=== PATIENT | male | born 1960 | race Native Hawaiian/Other Pacific Islander ===

== ENCOUNTER 2017-08-07 17:16 | Outpatient (CLI) | payer MEDICAID ==
[2017-08-07 13:43] LABS: BASOPHILS % (AUTO) 0.3 %; EOSINOPHILS # (AUTO) 0.2 10^3/uL (0.0-0.7); EOSINOPHILS % (AUTO) 2.3 %; HCT - HEMATOCRIT 49.8 % (42.0-52.0); LYMPHOCYTES % (AUTO) 28.8 %; MEAN CORPUSCULAR HEMOGLOBIN 32.3 pg (27.0-31.0); MEAN CORPUSCULAR HGB CONC 34.1 g/dL (32.0-36.0); MEAN CORPUSCULAR VOLUME 94.7 fL (80.0-94.0); MEAN PLATELET VOLUME 7.8 fL (7.4-11.4); MONOCYTES # (AUTO) 0.6 10^3/uL (0.0-1.0); MONOCYTES % (AUTO) 5.8 %; NEUTROPHILS # (AUTO) 6.5 10^3/uL (1.5-6.6); NEUTROPHILS % (AUTO) 62.8 %; NUCLEATED RED BLOOD CELLS AUTO 0.1 /100WBC; RED BLOOD COUNT 5.26 10^6/uL (4.70-6.10); RED CELL DISTRIBUTION WIDTH 16.1 % (12.0-15.0); UNCORRECTED WHITE BLOOD COUNT 10.3 x10^3/uL; WHITE BLOOD COUNT 10.3 x10^3/uL (4.8-10.8)
[2017-08-07 13:45] LABS: ALBUMIN/GLOBULIN RATIO 1.7 (1.0-2.2); BILIRUBIN,TOTAL 1.2 mg/dL (0.2-1.0); BUN - BLOOD UREA NITROGEN 11 mg/dL (6-20); CALCIUM 9.3 mg/dL (8.5-10.3); CARBON DIOXIDE - CO2 28 mmol/L (21-32); CHLORIDE 101 mmol/L (101-111); CHOLESTEROL 181 mg/dL; CREATININE 1.1 mg/dL (0.6-1.2); GFR - MDRD 69 (>89); GLUCOSE 113 mg/dL (70-100); HDL CHOLESTEROL 45 mg/dL; LDL/HDL RATIO 2.6 (<3.6); POTASSIUM 3.2 mmol/L (3.5-5.0); SODIUM 139 mmol/L (135-145); TOTAL PROTEIN 6.7 g/dL (6.7-8.2); TRIGLYCERIDES 104 mg/dL; VLDL CHOLESTEROL 21 mg/dL
== END 2017-08-07 17:17 | disposition home or self-care (01) ==
LOC: LAB.N 17:16
PROVIDERS: ATTEND Family Medicine
DX: Z51.81 Encounter for therapeutic drug level monitoring (principal); I69.959 Hemiplegia and hemiparesis following unspecified cerebrovascular disease affecting unspecified side; D75.1 Secondary polycythemia; R56.9 Unspecified convulsions; I10 Essential (primary) hypertension
CPT/HCPCS: 36415; 80050; 80061

== ENCOUNTER 2018-06-21 08:00 | Outpatient (CLI) | payer MEDICAID ==
[2018-06-21 18:52] LABS: BASOPHILS % (AUTO) 0.4 %; EOSINOPHILS # (AUTO) 0.2 10^3/uL (0.0-0.7); EOSINOPHILS % (AUTO) 2.5 %; HGB - HEMOGLOBIN 16.9 g/dL (14.0-18.0); LYMPHOCYTES # (AUTO) 2.5 10^3/uL (1.5-3.5); LYMPHOCYTES % (AUTO) 27.2 %; MEAN CORPUSCULAR HEMOGLOBIN 33.1 pg (27.0-31.0); MEAN CORPUSCULAR HGB CONC 33.5 g/dL (32.0-36.0); MEAN CORPUSCULAR VOLUME 98.8 fL (80.0-94.0); MEAN PLATELET VOLUME 7.7 fL (7.4-11.4); MONOCYTES # (AUTO) 0.6 10^3/uL (0.0-1.0); MONOCYTES % (AUTO) 6.6 %; NEUTROPHILS # (AUTO) 5.9 10^3/uL (1.5-6.6); NEUTROPHILS % (AUTO) 63.3 %; PLT - PLATELET COUNT 362 10^3/uL (130-450); RED BLOOD COUNT 5.09 10^6/uL (4.70-6.10); RED CELL DISTRIBUTION WIDTH 14.6 % (12.0-15.0); WHITE BLOOD COUNT 9.2 x10^3/uL (4.8-10.8)
[2018-06-21 19:26] LABS: ALBUMIN 4.2 g/dL (3.2-5.5); ALBUMIN/GLOBULIN RATIO 1.8 (1.0-2.2); ALKALINE PHOSPHATASE 66 IU/L (42-121); ALT ALANINE AMINOTRANSFERASE 51 IU/L (10-60); AST ASPARTATE AMINOTRANSFERASE 41 IU/L (10-42); BILIRUBIN,TOTAL 1.2 mg/dL (0.2-1.0); BUN - BLOOD UREA NITROGEN 13 mg/dL (6-20); CALCIUM 9.1 mg/dL (8.5-10.3); CARBON DIOXIDE - CO2 30 mmol/L (21-32); CHLORIDE 95 mmol/L (101-111); CHOL/HDL RATIO 4.4 (<5.0); CHOLESTEROL 182 mg/dL; GFR - MDRD 77 (>89); GLUCOSE 122 mg/dL (70-100); HDL CHOLESTEROL 41 mg/dL; LDL CHOLESTEROL,CALCULATED 95 mg/dL; LDL/HDL RATIO 2.3 (<3.6); SODIUM 136 mmol/L (135-145); TOTAL PROTEIN 6.5 g/dL (6.7-8.2); VLDL CHOLESTEROL 46 mg/dL
== END 2018-06-21 08:01 | disposition home or self-care (01) ==
LOC: LAB.N 08:00
PROVIDERS: ATTEND Family Medicine
DX: D75.1 Secondary polycythemia (principal); G40.909 Epilepsy, unspecified, not intractable, without status epilepticus; E78.5 Hyperlipidemia, unspecified; I10 Essential (primary) hypertension; Z51.81 Encounter for therapeutic drug level monitoring
CPT/HCPCS: 36415; 80050; 80061; 83721

== ENCOUNTER 2018-08-13 11:21 | Outpatient (CLI) | payer MEDICAID ==
[2018-08-13 19:43] LABS: CALCIUM 8.9 mg/dL (8.5-10.3)
[2018-08-14 18:11] LABS: HB2 TOTAL 18.2 g/dL; HEMOGLOBIN A1C 0.97 g/dL
== END 2018-08-13 23:59 | disposition home or self-care (01) ==
LOC: LAB.N 11:21
PROVIDERS: ATTEND Family Medicine
DX: E87.6 Hypokalemia (principal); R73.01 Impaired fasting glucose
CPT/HCPCS: 36415; 80048; 83036

== ENCOUNTER 2018-11-22 08:00 | Outpatient (CLI) | payer MEDICAID ==
[2018-11-22 18:58] LABS: BASOPHILS # (AUTO) 0.1 10^3/uL (0.0-0.1); BASOPHILS % (AUTO) 0.6 %; EOSINOPHILS # (AUTO) 0.1 10^3/uL (0.0-0.7); EOSINOPHILS % (AUTO) 1.2 %; HGB - HEMOGLOBIN 16.1 g/dL (14.0-18.0); LYMPHOCYTES # (AUTO) 2.1 10^3/uL (1.5-3.5); LYMPHOCYTES % (AUTO) 23.2 %; MEAN CORPUSCULAR HEMOGLOBIN 32.5 pg (27.0-31.0); MEAN CORPUSCULAR HGB CONC 33.2 g/dL (32.0-36.0); MEAN CORPUSCULAR VOLUME 97.9 fL (80.0-94.0); MEAN PLATELET VOLUME 7.7 fL (7.4-11.4); MONOCYTES # (AUTO) 0.6 10^3/uL (0.0-1.0); MONOCYTES % (AUTO) 6.2 %; NEUTROPHILS # (AUTO) 6.2 10^3/uL (1.5-6.6); NEUTROPHILS % (AUTO) 68.8 %; PLT - PLATELET COUNT 301 10^3/uL (130-450); RED BLOOD COUNT 4.95 10^6/uL (4.70-6.10); RED CELL DISTRIBUTION WIDTH 15.1 % (12.0-15.0)
[2018-11-22 19:31] LABS: ALBUMIN 4.1 g/dL (3.2-5.5); ALBUMIN/GLOBULIN RATIO 1.8 (1.0-2.2); BILIRUBIN,TOTAL 1.2 mg/dL (0.2-1.0); CALCIUM 8.8 mg/dL (8.5-10.3); CREATININE 0.9 mg/dL (0.6-1.2); TOTAL PROTEIN 6.4 g/dL (6.7-8.2)
== END 2018-11-22 23:59 | disposition home or self-care (01) ==
LOC: LAB.N 08:00
PROVIDERS: ATTEND Family Medicine
DX: E87.1 Hypo-osmolality and hyponatremia (principal); I10 Essential (primary) hypertension; E87.6 Hypokalemia; R73.01 Impaired fasting glucose
CPT/HCPCS: 36415; 80050

== ENCOUNTER 2019-07-22 09:00 | Outpatient (CLI) | payer MEDICAID | END 2019-07-22 23:59 | disposition home or self-care (01) | LOC: LAB.R 09:00 | PROVIDERS: ATTEND Family Medicine | DX: Z13.818 Encounter for screening for other digestive system disorders (principal) | CPT/HCPCS: 82274 ==

== ENCOUNTER 2020-12-14 08:00 | Outpatient (CLI) | payer MEDICAID ==
[2020-12-14 11:50] LABS: BASOPHILS % (AUTO) 0.4 %; EOSINOPHILS # (AUTO) 0.2 10^3/uL (0.0-0.7); EOSINOPHILS % (AUTO) 2.1 %; HCT - HEMATOCRIT 49.8 % (42.0-52.0); HGB - HEMOGLOBIN 16.5 g/dL (14.0-18.0); LYMPHOCYTES # (AUTO) 2.6 10^3/uL (1.5-3.5); LYMPHOCYTES % (AUTO) 33.2 %; MEAN CORPUSCULAR HGB CONC 33.1 g/dL (32.0-36.0); MEAN CORPUSCULAR VOLUME 102.5 fL (80.0-94.0); MEAN PLATELET VOLUME 9.6 fL (7.4-11.4); MONOCYTES # (AUTO) 0.5 10^3/uL (0.0-1.0); MONOCYTES % (AUTO) 6.3 %; NEUTROPHILS # (AUTO) 4.4 10^3/uL (1.5-6.6); NEUTROPHILS % (AUTO) 57.7 %; PLT - PLATELET COUNT 280 10^3/uL (130-450); RED BLOOD COUNT 4.86 10^6/uL (4.70-6.10); RED CELL DISTRIBUTION WIDTH 13.3 % (12.0-15.0); WHITE BLOOD COUNT 7.7 x10^3/uL (4.8-10.8)
[2020-12-14 13:24] LABS: ALBUMIN 4.4 g/dL (3.2-5.5); ALBUMIN/GLOBULIN RATIO 1.8 (1.0-2.2); ALKALINE PHOSPHATASE 73 IU/L (42-121); ALT ALANINE AMINOTRANSFERASE 23 IU/L (10-60); AST ASPARTATE AMINOTRANSFERASE 18 IU/L (10-42); BILIRUBIN,TOTAL 1.3 mg/dL (0.2-1.0); BUN - BLOOD UREA NITROGEN 11 mg/dL (6-20); CALCIUM 9.5 mg/dL (8.5-10.3); CARBON DIOXIDE - CO2 27 mmol/L (21-32); CHLORIDE 101 mmol/L (101-111); CHOLESTEROL 166 mg/dL; CREATININE 0.8 mg/dL (0.6-1.2); ESTIMATED AVERAGE GLUCOSE 131 mg/dL (70-100); GFR - MDRD 99 (>89); GLUCOSE 105 mg/dL (70-100); HDL CHOLESTEROL 41 mg/dL; HEMOGLOBIN A1c% 6.2 % (4.27-6.07); LDL CHOLESTEROL,CALCULATED 101 mg/dL; LDL/HDL RATIO 2.5 (<3.6); SODIUM 138 mmol/L (135-145); TOTAL PROTEIN 6.9 g/dL (6.7-8.2); TRIGLYCERIDES 121 mg/dL; VLDL CHOLESTEROL 24 mg/dL
[2020-12-14 13:25] LABS: THYROID STIMULATING HORMONE 1.76 uIU/mL (0.34-5.60)
[2020-12-14 14:30] LABS: CREATININE,URINE 203.4 mg/dL; MICROALBUM/CREATININE RATIO,UR 3.4 ug/mg (<30.0); MICROALBUMIN,URINE 0.7 mg/dL (0-300.0)
== END 2020-12-14 23:59 | disposition home or self-care (01) ==
LOC: LAB.WCP 08:00
PROVIDERS: ATTEND Internal Medicine
DX: I10 Essential (primary) hypertension (principal); E87.1 Hypo-osmolality and hyponatremia; Z83.3 Family history of diabetes mellitus; Z12.5 Encounter for screening for malignant neoplasm of prostate; J03.80 Acute tonsillitis due to other specified organisms
CPT/HCPCS: 36415; 80050; 80061; 82043; 82533; 82570; 83036; 83721; 83930; 83935; 84153; 84300; 86769

== ENCOUNTER 2021-06-24 08:06 | Outpatient (CLI) | payer MEDICAID ==
[2021-06-24 12:56] LABS: CALCIUM 9.5 mg/dL (8.5-10.3); CREATININE 0.9 mg/dL (0.6-1.2); POTASSIUM 3.9 mmol/L (3.5-5.0)
[2021-06-24 13:14] LABS: ESTIMATED AVERAGE GLUCOSE 143 mg/dL (70-100); HEMOGLOBIN A1c% 6.6 % (4.27-6.07)
== END 2021-06-24 23:59 | disposition home or self-care (01) ==
LOC: LAB.WCP 08:06
PROVIDERS: ATTEND Internal Medicine
DX: I10 Essential (primary) hypertension (principal); R73.03 Prediabetes
CPT/HCPCS: 36415; 80048; 82043; 82570; 83036

== ENCOUNTER 2021-11-01 10:22 | Outpatient (CLI) | payer MEDICAID ==
[2021-11-01 12:07] LABS: BASOPHILS % (AUTO) 0.2 %; EOSINOPHILS # (AUTO) 0.1 10^3/uL (0.0-0.7); EOSINOPHILS % (AUTO) 1.2 %; HCT - HEMATOCRIT 50.4 % (42.0-52.0); LYMPHOCYTES # (AUTO) 2.6 10^3/uL (1.5-3.5); MEAN CORPUSCULAR HEMOGLOBIN 34.5 pg (27.0-31.0); MEAN CORPUSCULAR HGB CONC 33.7 g/dL (32.0-36.0); MEAN CORPUSCULAR VOLUME 102.2 fL (80.0-94.0); MEAN PLATELET VOLUME 9.4 fL (7.4-11.4); MONOCYTES # (AUTO) 0.7 10^3/uL (0.0-1.0); MONOCYTES % (AUTO) 6.1 %; NEUTROPHILS # (AUTO) 7.3 10^3/uL (1.5-6.6); NEUTROPHILS % (AUTO) 68.2 %; PLT - PLATELET COUNT 356 10^3/uL (130-450); RED BLOOD COUNT 4.93 10^6/uL (4.70-6.10); RED CELL DISTRIBUTION WIDTH 15.4 % (12.0-15.0); WHITE BLOOD COUNT 10.6 x10^3/uL (4.8-10.8)
[2021-11-01 12:29] LABS: ALBUMIN 4.5 g/dL (3.2-5.5); ALBUMIN/GLOBULIN RATIO 1.7 (1.0-2.2); ALKALINE PHOSPHATASE 76 IU/L (42-121); ALT ALANINE AMINOTRANSFERASE 29 IU/L (10-60); AST ASPARTATE AMINOTRANSFERASE 22 IU/L (10-42); BILIRUBIN,TOTAL 1.5 mg/dL (0.2-1.0); BUN - BLOOD UREA NITROGEN 17 mg/dL (6-20); CALCIUM 9.4 mg/dL (8.5-10.3); CARBON DIOXIDE - CO2 27 mmol/L (21-32); CHLORIDE 96 mmol/L (101-111); CHOL/HDL RATIO 4.1 (<5.0); CHOLESTEROL 179 mg/dL; GFR - MDRD 76 (>89); GLUCOSE 117 mg/dL (70-100); HDL CHOLESTEROL 44 mg/dL; LDL CHOLESTEROL,CALCULATED 109 mg/dL; LDL/HDL RATIO 2.5 (<3.6); SODIUM 135 mmol/L (135-145); TOTAL PROTEIN 7.1 g/dL (6.7-8.2); TRIGLYCERIDES 130 mg/dL; VLDL CHOLESTEROL 26 mg/dL
[2021-11-01 12:50] LABS: CREATININE,URINE 233.8 mg/dL; MICROALBUM/CREATININE RATIO,UR 3.8 ug/mg (<30.0); MICROALBUMIN,URINE 0.9 mg/dL (0-300.0)
[2021-11-01 12:53] LABS: THYROID STIMULATING HORMONE 1.66 uIU/mL (0.34-5.60)
[2021-11-01 13:18] LABS: ESTIMATED AVERAGE GLUCOSE 137 mg/dL (70-100); HEMOGLOBIN A1c% 6.4 % (4.27-6.07)
== END 2021-11-01 10:23 | disposition home or self-care (01) ==
LOC: LAB.N 10:22
PROVIDERS: ATTEND Internal Medicine
DX: I10 Essential (primary) hypertension (principal); E78.5 Hyperlipidemia, unspecified; Z12.5 Encounter for screening for malignant neoplasm of prostate; R73.03 Prediabetes
CPT/HCPCS: 36415; 80050; 80061; 82043; 82570; 83036; 83721; 84153

== ENCOUNTER 2023-04-16 10:34 | Outpatient (CLI) | payer MEDICAID ==
[2023-04-16 17:55] LABS: BASOPHILS % (AUTO) 0.4 %; EOSINOPHILS # (AUTO) 0.1 10^3/uL (0.0-0.7); EOSINOPHILS % (AUTO) 0.9 %; HCT - HEMATOCRIT 53.4 % (42.0-52.0); HGB - HEMOGLOBIN 17.5 g/dL (14.0-18.0); LYMPHOCYTES % (AUTO) 20.2 %; MEAN CORPUSCULAR HEMOGLOBIN 31.1 pg (27.0-31.0); MEAN CORPUSCULAR HGB CONC 32.8 g/dL (32.0-36.0); MEAN PLATELET VOLUME 9.4 fL (7.4-11.4); MONOCYTES # (AUTO) 0.7 10^3/uL (0.0-1.0); MONOCYTES % (AUTO) 6.5 %; NEUTROPHILS # (AUTO) 7.2 10^3/uL (1.5-6.6); NEUTROPHILS % (AUTO) 71.7 %; PLT - PLATELET COUNT 274 10^3/uL (130-450); RED BLOOD COUNT 5.62 10^6/uL (4.70-6.10); RED CELL DISTRIBUTION WIDTH 14.6 % (12.0-15.0)
[2023-04-16 17:59] LABS: ALBUMIN 4.6 g/dL (3.2-5.5); ALBUMIN/GLOBULIN RATIO 1.8 (1.0-2.2); ALKALINE PHOSPHATASE 82 IU/L (42-121); ALT ALANINE AMINOTRANSFERASE 16 IU/L (10-60); AST ASPARTATE AMINOTRANSFERASE 17 IU/L (10-42); BILIRUBIN,TOTAL 1.4 mg/dL (0.2-1.0); BUN - BLOOD UREA NITROGEN 18 mg/dL (6-20); CALCIUM 9.6 mg/dL (8.5-10.3); CARBON DIOXIDE - CO2 26 mmol/L (21-32); CHLORIDE 103 mmol/L (101-111); CHOL/HDL RATIO 2.8 (<5.0); CHOLESTEROL 112 mg/dL; CREATININE 1.1 mg/dL (0.6-1.3); GFR - MDRD 68 (>89); GLUCOSE 94 mg/dL (74-104); HDL CHOLESTEROL 40 mg/dL; LDL CHOLESTEROL,CALCULATED 52 mg/dL; LDL/HDL RATIO 1.3 (<3.6); POTASSIUM 4.3 mmol/L (3.5-4.5); SODIUM 135 mmol/L (135-145); TOTAL PROTEIN 7.1 g/dL (6.4-8.9); TRIGLYCERIDES 100 mg/dL (48-352); VLDL CHOLESTEROL 20 mg/dL
[2023-04-16 18:17] LABS: THYROID STIMULATING HORMONE 1.79 uIU/mL (0.34-5.60)
[2023-04-16 22:10] LABS: ESTIMATED AVERAGE GLUCOSE 140 mg/dL (70-100); HEMOGLOBIN A1c% 6.5 % (4.27-6.07)
== END 2023-04-16 10:35 | disposition home or self-care (01) ==
LOC: LAB.N 10:34
PROVIDERS: ATTEND Internal Medicine
DX: E78.5 Hyperlipidemia, unspecified (principal); I10 Essential (primary) hypertension; R73.03 Prediabetes; Z12.5 Encounter for screening for malignant neoplasm of prostate; Z13.29 Encounter for screening for other suspected endocrine disorder
CPT/HCPCS: 36415; 80050; 80061; 82043; 82570; 83036; 83721; 84153

== ENCOUNTER 2023-04-21 08:00 | Outpatient (CLI) | payer MEDICAID ==
[2023-04-21 12:39] LABS: MICROALBUM/CREATININE RATIO,UR 45.5 ug/mg (<30.0); MICROALBUMIN,URINE 6.1 mg/dL
== END 2023-04-21 23:59 | disposition home or self-care (01) ==
LOC: LAB.N 08:00
PROVIDERS: ATTEND Internal Medicine
DX: R73.03 Prediabetes (principal)
CPT/HCPCS: 82043; 82570

== ENCOUNTER 2023-10-13 10:32 | Outpatient (CLI) | payer MEDICAID ==
[2023-10-13 12:25] LABS: CALCIUM 9.7 mg/dL (8.5-10.3); POTASSIUM 4.1 mmol/L (3.5-4.5)
[2023-10-13 12:34] LABS: FECAL OCCULT BLOOD (FIT) POSITIVE (NEGATIVE)
[2023-10-13 14:06] LABS: ESTIMATED AVERAGE GLUCOSE 143 mg/dL (70-100); HEMOGLOBIN A1c% 6.6 % (4.27-6.07)
== END 2023-10-13 10:33 | disposition home or self-care (01) ==
LOC: LAB.N 10:32
PROVIDERS: ATTEND Internal Medicine
DX: R73.03 Prediabetes (principal); Z12.11 Encounter for screening for malignant neoplasm of colon
CPT/HCPCS: 36415; 80048; 82274; 83036

== ENCOUNTER 2024-02-04 07:31 | Day surgery (SDC) | payer MEDICAID ==
[2024-02-04] MEDS: LACTATED RINGERS 1,000 ML IV ONE (07:36)
--- NOTE | 2024-02-04 08:06 | ANESTHESIA ---
Pre-Anesthesia VS, & Labs - Diagnosis positive FIT - Procedure colonoscopy Height: 5 ft 5 in Weight (kg): 92 kg Body Mass Index: 33.7 BMI Classification: Obese - NPO >8 hours Last Fluid Intake: am prep - Lab Results Current Lab Results: Laboratory Tests 02/04/24 07:56: POC Whole Bld Glucose 115 H Lab results reviewed: Yes Home Medications and Allergies Home Medications: Ambulatory Orders Aspirin EC [Ecotrin] 325 mg PO DAILY 02/03/24 Gabapentin 400 mg PO TID 02/03/24 Potassium Chloride 20 meq PO BIDWM 02/03/24 Rosuvastatin Calcium 40 mg PO DAILY 02/03/24 lisinopriL [Lisinopril] 20 mg PO DAILY 02/03/24 Aspirin EC [Ecotrin] 325 mg PO DAILY 02/03/24 Gabapentin 400 mg PO TID 02/03/24 Potassium Chloride 20 meq PO BIDWM 02/03/24 Rosuvastatin Calcium 40 mg PO DAILY 02/03/24 lisinopriL [Lisinopril] 20 mg PO DAILY 02/03/24 Allergies/Adverse Reactions: Allergies Allergy/AdvReac Type Severity Reaction Status Date / Time No Known Drug Allergies Allergy Verified 02/04/24 07:52 Anes History & Medical History - Anesthetic History Anesthesia Complications: reports: No previous complications Family history of Anesthesia Complications: Denies Family history of Malignant Hyperthermia: Denies - Medical History Cardiovascular: reports: Hypertension, High cholesterol Pulmonary: reports: None Gastrointestinal: reports: None Urinary: reports: None 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, R hemiplegia) Musculoskeletal: reports: Hemiplegia Endocrine/Autoimmune: reports: Type 2 diabetes History of Cancer?: No Exam General: Alert, Oriented x3, Cooperative, Other (sister assists with communication) Dental: Dentures full Upper, Other (no bottom teeth) Mouth Openin Fingerbreadth Neck Mobility: Normal Mallampati classification: I Thyromental Distance: 4-6 cm Respiratory: Lungs clear, Normal breath sounds, No respiratory distress, Other Cardiovascular: Regular rate (tachy at 105) Neurological: Other (R hemiplegis from cva 2008) Mental/Cognitive Status: Alert/Oriented X3 Cognitive Status: Other (describe below) (sister assists with communication. Pt understands what is being said but unable to communicate back with anything other than yes/no nods. some indiscernible verbal) Plan Anesthesia Type: Total IV Consent for Procedure(s) Verified and Reviewed: Yes Code Status: Attempt Resuscitation ASA classification: 3-Severe systemic disease Is this case an emergency?: No
[2024-02-04] MEDS ORDERED: LIDOCAINE-MPF 2% 5 ML VIAL ONE (08:45)
[2024-02-04] MEDS ORDERED: PROPOFOL 500 MG/50 ML 500 MG/50 ML VIAL ONE (08:45)
[2024-02-04] MEDS: LACTATED RINGERS 800 ML IV ONE (09:12)
[2024-02-04 09:51] VITALS: BP 96/65; O2SAT 16
--- NOTE | 2024-02-04 10:51 | ANESTHESIA POST OP EVALUATION ---
Anesthesia Post Eval - Post Anesthesia Eval Vitals: Last Vital Signs Temp 36.2 C L 02/04/24 09:47 Pulse 80 02/04/24 09:47 Resp 16 02/04/24 09:47 BP 96/65 02/04/24 09:47 Pulse Ox 16 L 02/04/24 09:47 O2 Flow Rate CV Function Including HR & BP: Stable Pain Control: Satisfactory Nausea & Vomiting: Negative Mental Status: Baseline Respiratory Status: Airway Patent Hydration Status: Satisfactory Anesthesia Complications: None
== END 2024-02-04 07:32 | disposition home or self-care (01) ==
LOC: SDS 07:31
PROVIDERS: ATTEND Surgery
PROC: 0DBM8ZZ Excision of Descending Colon, Via Natural or Artificial Opening Endoscopic (ICD-10-PCS; 2024-02-04)
PROC: 0DBH8ZX Excision of Cecum, Via Natural or Artificial Opening Endoscopic, Diagnostic (ICD-10-PCS; principal; 2024-02-04 08:30)
DX: R19.5 Other fecal abnormalities (principal); D12.4 Benign neoplasm of descending colon; K63.5 Polyp of colon; I69.328 Other speech and language deficits following cerebral infarction; I69.351 Hemiplegia and hemiparesis following cerebral infarction affecting right dominant side; I10 Essential (primary) hypertension; E66.9 Obesity, unspecified; Z68.33 Body mass index [BMI] 33.0-33.9, adult; E11.9 Type 2 diabetes mellitus without complications; Z79.82 Long term (current) use of aspirin
CPT/HCPCS: 45380; 45385; J7120